=== PATIENT | male | born 1945 | race Caucasian/White ===

== ENCOUNTER 2016-06-23 09:07 | Day surgery (SDC) | payer OTHER, MEDICARE ==
--- NOTE | 2016-06-15 09:50 | PAT Medication Instructions ---
Service Date Jun 15, 2016. Current Home Medication List Alprazolam (Xanax), 1 MG PO TID PRN for RN Amlodipine Besylate (Norvasc), 5 MG PO BID Aspirin (Aspirin 81), 81 MG PO QAM Clopidogrel (Plavix), 75 MG PO QAM Dexlansoprazole (Dexilant), 60 MG PO QAM Docusate Sodium (Colace), 100 CAP PO BID PRN for PRN Gabapentin (Neurontin), 600 MG PO QID Morphine Sulfate Ir (Morphine Sulfate Ir), 15 MG PO Q6H Nitroglycerin (Nitrostat), 0.4 MG UT PRN Omeprazole (Prilosec), 40 MG PO PRN Pravastatin (Pravachol ), 40 MG PO QPM Senna/Docusate Sod (Senokot S), 1.5 TAB PO HS Medication Instructions For Your Scheduled Surgery - Check with surgeon/compliance administrator for instructions: Aspirin (Aspirin 81), 81 MG PO QAM Clopidogrel (Plavix), 75 MG PO QAM - Hold the following medications the morning of surgery: Docusate Sodium (Colace), 100 CAP PO BID PRN for PRN - Take the following medications the morning of surgery with a sip of water: Omeprazole (Prilosec), 40 MG PO PRN (if needed) Nitroglycerin (Nitrostat), 0.4 MG UT PRN (if needed) Morphine Sulfate Ir (Morphine Sulfate Ir), 15 MG PO Q6H (okay to take up to 4 hours prior to surgery if needed) Gabapentin (Neurontin), 600 MG PO QID Dexlansoprazole (Dexilant), 60 MG PO QAM Alprazolam (Xanax), 1 MG PO TID PRN for RN (if needed) Amlodipine Besylate (Norvasc), 5 MG PO BID - Take the following medications as scheduled the night before surgery: Senna/Docusate Sod (Senokot S), 1.5 TAB PO HS Pravastatin (Pravachol ), 40 MG PO QPM Omeprazole (Prilosec), 40 MG PO PRN (if needed) Nitroglycerin (Nitrostat), 0.4 MG UT PRN (if needed) Morphine Sulfate Ir (Morphine Sulfate Ir), 15 MG PO Q6H (if needed) Gabapentin (Neurontin), 600 MG PO QID Docusate Sodium (Colace), 100 CAP PO BID PRN for PRN (if needed) Alprazolam (Xanax), 1 MG PO TID PRN for RN (if needed) Amlodipine Besylate (Norvasc), 5 MG PO BID If you have any questions please call us at [phone] (Joanne Aguilar PA-C) or [phone] or [phone]
[2016-06-15 10:16] LABS: BASO % 0.7 %; BASO ABS # 0.03 K/uL (0-0.2); COMPLETE YES; EOS % 2.6 %; HEMATOCRIT 38.5 % (42-52); IG% 0.2 %; LYMPH % 39.3 %; MEAN CELL VOLUME 86.9 fL (80-100); MEAN CORPUSCULAR HEMOGLOBIN 29.8 pg (25-34); MEAN CORPUSCULAR HGB CONC 34.3 g/dl (32-36); MEAN PLATELET VOLUME 9.5 fL (7.4-10.4); MONO % 13.1 %; NEUT % 44.1 %; PLATELET COUNT 176 K/uL (130-400); RED BLOOD COUNT 4.43 M/uL (4.7-6.1); WHITE BLOOD COUNT 4.58 K/uL (4.8-10.8)
[2016-06-15 10:49] LABS: BLOOD UREA NITROGEN 13 mg/dl (7-18); CREATININE 0.85 mg/dl (0.60-1.40); GLUCOSE 88 mg/dl (70-99)
[2016-06-15 10:50] LABS: BUN/CREATININE RATIO 15.2 (10-20); CALCIUM 8.9 mg/dl (8.5-10.1); CARBON DIOXIDE 30 mmol/L (21-32); CHLORIDE 104 mmol/L (98-107); POTASSIUM 4.1 mmol/L (3.5-5.1); SODIUM 139 mmol/L (136-145)
--- NOTE | 2016-06-15 11:20 | DIAGNOSTIC IMAGING REPORT ---
TWO VIEW CHEST CLINICAL HISTORY: Preoperative examination. FINDINGS: PA and lateral chest radiographs are compared to study dated 03/31/2013. The patient is status post midline sternotomy. The heart is enlarged and there is atherosclerotic calcification of the thoracic aorta. The pulmonary vasculature is noncongested. A coronary artery stent is noted. There is minimal left basilar atelectasis. The lungs and pleural spaces are otherwise clear. There is no pneumothorax. The skeletal structures are osteopenic. There are healed left-sided rib fractures. Cholecystectomy clips are seen in the right upper quadrant. IMPRESSION: Cardiac enlargement with no active disease in the chest. Electronically signed by: Juan Rainey M.D. 06/15/2016 11:18 AM
[2016-06-15 11:51] LABS: URINE APPEARANCE CLEAR (CLEAR); URINE BILIRUBIN NEG (NEG); URINE COLOR ORANGE; URINE NITRITE NEG (NEG); URINE PH 6.5 (4.5-7.5); URINE SPECIFIC GRAVITY 1.008 (1.000-1.030); UROBILINOGEN NEG (NEG)
[2016-06-15 11:53] LABS: MANUAL MICROSCOPIC REQUIRED? NO; REVIEW REQ? NO
--- NOTE | 2016-06-15 12:45 | Anesthesiology Progress Note ---
Anesthesia Progress Note Date of Service Jun 15, 2016. Progress Notes Pt was scheduled for [facility] appt 06/15/16 0815. As of 06/14/16, no paperwork had been received by [facility], so a message was left in the morning for Dr.Bailey Jerri 's scheduling nurse requesting paperwork. Another call was placed 06/14/16 afternoon and Nalini [facility] financial secretary, spoke with Dr.Bailey Jerri's nurse, asking for paperwork to be sent on pt since [facility] was 06/15/16. No paperwork was received and pt presented to [facility] 06/15/16 for 0815 appt. PAT financial [facility], since no booking sheet had been sent to [facility] or the OR for the pt to be booked. The pt was seen by the [facility] nurse, and during his time with her, the pt expressed his frustration 1) that we did not know exactly what type of surgery that he was having and 2) that the RN was documenting on paper. The nurse apologized multiple times to the pt and explained that we were working diligently to obtain the necessary paperwork from his surgeon's office (however we were told that we were told that Dr.Bailey Jerri's scheduling nurse was not at the office today, and that there was nobody in the office to answer any questions about the pt or provide any information or paperwork). The PA, Joanne Aguilar, then evaluated the pt and again apologized for his frustration. The pt told her that he was told at Dr. Ford's office that he was going to be seeing a [facility] today. The pt does follow with a Igniter Capper in [place], but was apparently told that he would be seeing one here today. Joanne checked with [facility] to see if pt was scheduled for any appointments with them, but he was not. She again apologized to the pt, but we were unable to give him any more information on this and since nobody was available at the surgeon's office, we were not able to check with them. Per our protocol, since we did not have any PAT orders from the surgeon, Joanne ordered the testing which she deemed applicable, and explained to the pt that if requested any additional testing, that they would be contacting the pt. The pt became even more irate at this time. I then stepped in to attempt to diffuse the situation. The pt's stated that she had called the surgeon's office in the meantime and accused us of lying because ' someone named Devon at 's office told her that we were lying and that their office is open today'. While this was happening, Jerri from 's office called and stated that she had just arrived to the office and that she was sending the pt's paperwork over. I took the phone, and confirmed with her, in front of the pt, that this was the first time that they were sending the paperwork over to us. I also asked if there was anyone in their office named Devon (which she responded that there was not and thought that maybe the patient had spoken to someone in their call center), and explained that the pt was very upset and frustrated. I also asked her about the [facility] appointment that the patient was mentioning. She confirmed that she had told the pt that he would be seeing a [facility] today, but that she had asked Tianna , who works with , to set the pt up for an appt at [facility], but she had never followed up with Tianna about this. She said that she would check with Tianna , and I asked her to keep me on hold and let me know as soon as she heard from Tianna. While I was waiting, we did receive the paperwork that was faxed, and had ordered a CXR and UA which we had the pt complete in the meantime. When Jerri got back on the phone, she stated that she had set the pt up to see [facility] 06/20/16. I explained to her that we had checked this morning and that the pt had no upcoming appointments with them, and she stated that she had called and set up the appt while I was on hold. When the pt and his returned after completing the CXR, I updated them regarding the Cardiology appointment. The pt again began to raise his voice and blamed me for 'not knowing what was going on'. I again expressed our apologies, but explained that it was the surgeon's office, not the [facility] clinic, who had failed to send the paperwork and failed to set up the Cardiology appointment or communicate with him regarding this. He stated that he would be 'having a sit down with about this', which I told him that he was more than welcome to do. I gave them my business card with the information about the Cardiology appointment written on the back. I explained to them how to get to the appointment, and gave them [facility] contact information to call with any questions about the appointment. I also told the pt and his to call me if they had any questions, and assured them that we would be working closely with 's office to improve our communication in the future.
[2016-06-16 14:06] VITALS: BMI 29.0
[~2016-06-23] VITALS: Ht 172.7 cm; Wt 88.5 kg
--- NOTE | 2016-06-23 07:23 | History and Physical ---
History & Physical Date & Time of Service: Jun 23, 2016 at 07:17 Chief Complaint: Si joint dysfunction Primary Care Physician: No Doctor, Assigned History of Present Illness Source: patient Ongoing pain in the right SI joint region. Refractory to conservative [place]. Reports for surgery. Past Medical/Surgical History Angina CAD Hyprcholesterolemia Rotator cuff repair CABG Angioplasty Social History Smoking Status: Former Smoker Occupational Status: retired Immunizations History of Influenza Vaccine: Yes History of Tetanus Vaccine?: Yes History of Pneumococcal: Yes History of Hepatitis B Vaccine: No Allergies Coded Allergies: Fentanyl (Verified Adverse Reaction, Unknown, IRRITABILITY, "GETS MEAN", 06/15/16) Metoclopramide (Verified Adverse Reaction, Unknown, "I WENT CRAZY", ) Oxycodone (Verified Adverse Reaction, Unknown, "I WENT CRAZY", 06/15/16) Rocuronium (Verified Adverse Reaction, Unknown, "GETS MEAN", 06/15/16) Home Medications Scheduled Amlodipine Besylate (Norvasc), 5 MG PO BID Aspirin (Aspirin 81), 81 MG PO QAM Clopidogrel (Plavix), 75 MG PO QAM Dexlansoprazole (Dexilant), 60 MG PO QAM Gabapentin (Neurontin), 600 MG PO QID Morphine Sulfate Ir (Morphine Sulfate Ir), 15 MG PO Q6H Nitroglycerin (Nitrostat), 0.4 MG UT PRN Omeprazole (Prilosec), 40 MG PO PRN Pravastatin (Pravachol ), 40 MG PO QPM Senna/Docusate Sod (Senokot S), 1.5 TAB PO HS Scheduled PRN Alprazolam (Xanax), 1 MG PO TID PRN for RN Docusate Sodium (Colace), 100 CAP PO BID PRN for PRN Review of Systems Constitutional: No chills, No fatigue, No fever, No problem reported, No sweats , No weakness, No weight loss Eyes: No diplopia, No discharge, No eye pain, No problem reported, No redness, No worsening of vision ENT: No dental problems, No hearing loss, No nasal symptoms, No problem reported, No sore throat, No tinnitus, No trouble swallowing, No unusual epistaxis Abdomen: No GI bleeding, No constipation, No diarrhea, No nausea, No pain, No problem reported, No vomiting Musculoskeletal: No calf pain, No joint pain, No muscle pain, No problem reported, No swelling Genitourinary - Male: No dysuria, No hematuria, No impotence, No lesions, No penile discharge, No problem reported, No urinary frequency, No urinary hesitancy, No urinary incontinence, No urinary retention, No urinary urgency Neurologic: No balance problems, No memory loss, No numbness/tingling, No paralysis, No problem reported, No vertigo, No weakness Psychiatric: No anhedonism, No anxiety, No depression symptoms, No insomnia, No problem reported, No substance abuse Endocrine: No excessive thirst, No excessive urination, No fatigue, No problem reported Hematologic / Lymphatic: No abnormal bleeding/bruising, No clotting problems, No night sweats, No problem reported, No swollen lymph nodes Integumentary: No bleeding, No color change, No itch, No new/changing skin lesions, No problem reported, No rash Allergic / Immunologic: No environmental allergies, No food allergies, No frequent infections, No hives, No pet sensitivities, No poor healing, No problem reported, No prolonged convalescence, No seasonal allergies
--- NOTE | 2016-06-23 07:31 | History & Physical Bridge Note ---
H&P Re-Evaluation Bridge Note: I have examined the patient, reviewed the History & Physical and in the interval since the performance of the History & Physical I have noted the following changes of clinical significance: No changes noted
[~2016-06-23 09:07] MED LIST: ALPR-411 PO; AMLO5TAB2 PO; ASPI-435 PO; CEFAZOLIN 2000 MG/60 ML D5W IV SCH; CLOP1TAB15 PO; DEXL60CA4 PO; DOCU-94 PO; GABA600T PO; LACTATED RINGER'S 1000ML 1,000 ML IV SCH; MORP15TA PO; NTRGSL/4 UT; OMEP40CA PO; PRAV20TA PO; SENN-65 PO
[2016-06-23 09:56] VITALS: BP 119/62; PULSE 55; TEMP 37; O2SAT 95; Ht 172.7 cm; Wt 88.5 kg
[2016-06-23] MEDS ORDERED: FENTANYL CITRATE INJ 50 MCG/1 ML 2 ML VIAL ONE (11:57)
[2016-06-23] MEDS ORDERED: MIDAZOLAM HCL 1 MG/ML 2ML VIAL ONE (11:57)
[2016-06-23] MEDS ORDERED: HYDROmorphone INJ 2 MG/ML SYR/VIAL ONE ×2 (12:11→14:08)
[2016-06-23] MEDS ORDERED: PROPOFOL IV EMULSION 10 MG/ML 20 ML VIAL IV ONE (13:25)
[2016-06-23] MEDS ORDERED: ONDANSETRON INJ 2 MG/ML 2 ML VIAL ONE (13:25)
[2016-06-23] MEDS ORDERED: DEXAMETHASONE SOD INJ 4 MG/ML VIAL ONE (13:25)
[2016-06-23] MEDS ORDERED: ROCURONIUM BROMIDE 10 MG/ML 5 ML VIAL ONE (13:25)
[2016-06-23] MEDS ORDERED: GLYCOPYRROLATE INJ 0.2 MG/ML VIAL ONE (13:25)
[2016-06-23] MEDS ORDERED: LIDOCAINE HCL 2% 2 ML VIAL (20MG/ML) ONE (13:25)
[2016-06-23] MEDS ORDERED: KETOROLAC TROMETHAMINE 30 MG/ML VIAL ONE (13:25)
[2016-06-23] MEDS ORDERED: NEOSTIGMINE METHYLSULFATE 1 MG/ML 10ML VIAL ONE (13:25)
[2016-06-23] MEDS ORDERED: BACITRACIN 50000 UNIT VIAL IR ONE (13:35)
[2016-06-23] MEDS ORDERED: BUPIVACAINE/EPINEPHRINE 0.5% MPF 1:200,000 30 ML VIAL INJ ONE (13:35)
[2016-06-23] MEDS ORDERED: FLOSEAL HEMOSTATIC MATRIX 10ML TOP ONE (13:35)
[2016-06-23] MEDS ORDERED: HYDR-5688 PO (13:37)
--- NOTE | 2016-06-23 13:38 | Discharge Instructions ---
Discharge Instructions Admission Reason for Admission: Preop For Surg 06/23 -No Or Fax Yet Discharge Discharge Diagnosis / Problem: sacralilitis Discharge Goals Goal(s): Decrease discomfort Activity Recommendations Activity Limitations: per Instructions/Follow-up section Weightbearing Status: Right partial . Instructions / Follow-Up Instructions / Follow-Up partial weightbearing RLE may shower POD 2 F/U 2 weeks Current Hospital Diet Patient's current hospital diet: Discharge Diet Recommended Diet: Regular Diet Procedures Procedures Performed: Sacroiliac Joint Fusion, Right Use of miriam allograft Pending Studies Studies pending at discharge: no Medical Emergencies . Who to Call and When: Medical Emergencies: If at any time you feel your situation is an emergency, please call 911 immediately. . Non-Emergent Contact Non-Emergency issues call your: Primary Care Provider . "Provider Documentation" section prepared by Nick Ford. VTE Core Measure Inpt VTE Proph given/why not?: Kathy Cortes, SCD's
--- NOTE | 2016-06-23 13:52 | DIAGNOSTIC IMAGING REPORT ---
INTRAOPERATIVE RADIOGRAPHS CLINICAL HISTORY: Sacroiliac joint effusion. Fluoroscopy time: 94 seconds. FINDINGS: 3 spot fluoroscopic views of the right sacroiliac joint are presented. 3 cortical lag screws transfix the sacroiliac joint. The orthopedic hardware appears intact. There is no evidence of acute fracture on these fluoroscopic views. Lumbosacral fusion hardware is partially imaged. IMPRESSION: Intraoperative images from right sacroiliac joint effusion as above. Electronically signed by: Juan Rainey M.D. 06/23/2016 1:50 PM Dictated Date/Time: 06/23/2016 1:49 PM
[2016-06-23] MEDS ORDERED: NURSING VERBAL MED ORDER ONE ×2 (14:45→15:45)
[2016-06-23 14:55] VITALS: BP 105/54; PULSE 63; TEMP 37.1; O2SAT 94
--- NOTE | 2016-06-23 14:55 | Anesthesiology Progress Note ---
Anesthesia Post Op Note Date & Time Jun 23, 2016 at 14:55 Vital Signs Pain Intensity: 4 Vital Signs Past 12 Hours Date Time Temp Pulse Resp B/P Pulse Ox O2 Delivery O2 Flow Rate FiO2 06/23/16 14:45 36.4 66 12 116/58 92 Nasal Cannula 2 06/23/16 14:35 76 10 119/59 94 Nasal Cannula 4 06/23/16 14:25 72 13 117/67 96 Nasal Cannula 4 06/23/16 14:15 64 16 122/66 98 Mask 10 06/23/16 14:05 62 12 115/65 98 Mask 10 06/23/16 13:59 36.2 68 13 123/65 100 Mask 10 06/23/16 09:56 37.0 55 20 119/62 95 Room Air Notes Mental Status: alert / awake / arousable, participated in evaluation Pt Amnestic to Procedure: Yes Nausea / Vomiting: adequately controlled Pain: adequately controlled Airway Patency, RR, SpO2: stable & adequate BP & HR: stable & adequate Hydration State: stable & adequate Anesthetic Complications: no major complications apparent
[2016-06-23] MEDS ORDERED: EpHEDrine SULFATE INJ 50 MG/ML AMP IV PRN (15:00)
[2016-06-23] MEDS ORDERED: HYDROmorphone INJ 0.5 MG/0.5 ML SYR IV PRN (15:00)
[2016-06-23] MEDS ORDERED: ONDANSETRON INJ 2 MG/ML 2 ML VIAL IV PRN (15:00)
[2016-06-23] MEDS ORDERED: ATROPINE SULFATE 0.1 MG/ML 5ML SYR IV PRN (15:00)
[2016-06-23] MEDS ORDERED: HYDROmorphone INJ 2 MG/ML SYR/VIAL IV PRN (15:00)
[2016-06-23] MEDS ORDERED: PATIENT'S ALLERGY INFO NEEDS ENTERED SCH (15:00)
[2016-06-23] MEDS ORDERED: PHENYLEPHRINE 100MCG/ML 5ML SYR IV PRN (15:00)
[2016-06-23 15:25] VITALS: BP 110/59; PULSE 69; O2SAT 94
--- NOTE | 2016-06-23 15:28 | OPERATIVE REPORT ---
DATE OF OPERATION: 06/23/2016 PREOPERATIVE DIAGNOSIS: Sacroiliitis on the right. POSTOPERATIVE DIAGNOSIS: Same. PROCEDURE PERFORMED: Right SI joint fusion. SURGEON: Dr. Nick Ford. FILER AND SANDER: Darvin Harris PA-C. Due to the complex nature of the procedure, the entire surgery was performed with the physician's assistant of JITENDRA Acharya. The [employer] assistant manager, under direct supervision, was involved in the actual performance of all aspects of the surgical procedure including hemostasis, tissue retraction and incision, instrument management, patient positioning, and wound closure. ANESTHESIA: General. DISPOSITION: The patient awakened and taken to PACU in stable condition. HISTORY OF PATIENT'S PROBLEMS: A 70-year-old male who presents with the above-mentioned diagnosis. After failing an extensive course of nonoperative care, elected to undergo the above-mentioned procedure. Risks, benefits, pros, cons, and alternatives were outlined in detail preoperatively. DESCRIPTION OF PROCEDURE: The patient was met with preoperatively, the case discussed and all questions were addressed. At that point the patient was taken back to operative suite and after undergoing successful general intubation by the department of anesthesia was placed in the prone position on chest pad and hip bolsters. The right upper thigh and buttock region was prepped and draped in normal sterile fashion. With the assistance of fluoroscopy, we identified the sacral slope and aorta line. Approximately 3 cm incision was made along the sacral slope and using the fluoro, inlet outlet and lateral views, we identified the starting position for the first of 3 sacroiliac screws to be placed. A guidewire was placed at the upper portion of the sacrum. We measured a 50 mm screw. Subsequently, a 50 mm BA coated slotted screw filled with Amy bone grafting was placed with excellent fixation. Using outrigger guide, we placed a distal screw approximately 10 mm from this screw. Again, guidewire was placed in a normal fashion, checking position on AP and lateral planes. After the second BA coated screw filled with local bone and Amy was placed, a third distal screw was placed, again using outrigger guide. A guidewire was placed again with fluoroscopy in all planes. A 35 mm screw was used in the last position. After this was complete, the incision was copiously irrigated, closed with subcutaneous Vicryl and Monocryl for final skin closure. The patient was awakened and taken to PACU in stable condition. I attest to the content of the Intraoperative Record and any orders documented therein. Any exceptions are noted below. ROBD
[2016-06-23] MEDS ORDERED: KETOROLAC TROMETHAMINE 30 MG/ML VIAL IV. PRN (15:45)
[2016-06-23] MEDS ORDERED: HYDROCODONE/ACETAMOPHEN 5/325MG TAB PO ONE (15:45)
[2016-06-23 15:55] VITALS: BP 121/59; PULSE 64; TEMP 37.1; O2SAT 95
== END 2016-06-23 16:30 | disposition home or self-care (01) ==
LOC: C.ACU 09:07
PROVIDERS: ATTEND Orthopaedic Surgery Orthopaedic Surgery of the Spine
DX: M46.1 Sacroiliitis, not elsewhere classified (principal); J44.9 Chronic obstructive pulmonary disease, unspecified; I25.10 Atherosclerotic heart disease of native coronary artery without angina pectoris; I73.9 Peripheral vascular disease, unspecified; E66.9 Obesity, unspecified; Z68.30 Body mass index [BMI] 30.0-30.9, adult; Z90.49 Acquired absence of other specified parts of digestive tract; Z98.890 Other specified postprocedural states; Z95.1 Presence of aortocoronary bypass graft; Z87.891 Personal history of nicotine dependence; Z79.02 Long term (current) use of antithrombotics/antiplatelets; Z79.82 Long term (current) use of aspirin